=== PATIENT | female | born 1955 | race American Indian/Alaskan Native ===

== ENCOUNTER 2022-07-30 06:59 | Day surgery (SDC) | payer MEDICARE, OTHER ==
[2022-07-23 14:32] VITALS: BP 188/78
[~2022-07-30] VITALS: Ht 165.1 cm; Wt 125.9 kg
[~2022-07-30 06:59] MED LIST: AZELASTIN-FLUTI23 GM NS; B COMPLEX1 EACH PO; BETAMETHASONE D15 G2 TOP; CLARITIN10 M2 PO; COZAAR50 MG PO; HYDROCHLOROTH12.5 M1 PO; IPRAT-ALBUT 0.5-3 ML INH; K-TAB ER20 MEQ PO; LEFLUNOMIDE20 MG PO; MELOXICAM15 MG PO; MOVE FREE ULTR1 EAC2 PO; OMEPRAZOLE20 MG PO; PLAQUENIL200 MG PO; SIMVASTATIN10 MG PO; SINGULAIR10 MG PO; TRIAMCINOL40 MG/1 M4 IJ; TYLENOL EXTRA500 MG PO; VENTOLIN HFA18 GM INH; WIXELA 250-501 EACH; [UNRECOGNIZED DRUG - OTHER] PO
[2022-07-30 07:24] VITALS: BP 177/56
--- NOTE | 2022-07-30 08:57 | NUR ---
07/30/22 0857 Viktoria Patel 4884-PATIENT ARRIVED TO PACU ON 6L MASK RR EVEN DROWSY OPENING EYES REPORTS " CRAMPY" WHEN RN ASKED IF TOLERABLE REPORTS "YES" DOZES BACK TO SLEEP. SR. IVF INFUSING. NO DRAINAGE TO NICCI AREA.
[2022-07-30] MEDS ORDERED: TYLENOL EXTRA500 MG PO (09:11)
[2022-07-30] MEDS ORDERED: MOTRIN IB200 M1 PO (09:11)
[2022-07-30] MEDS ORDERED: OXYCODONE HCL5 MG PO (09:12)
[2022-07-30 09:33] VITALS: BP 162/73
--- NOTE | 2022-07-31 16:58 | OR ---
[facility] [address], [place] [address] Signed DATE OF OPERATION: 07/30/2022 SURGEON: Tamar Means MD PREOPERATIVE DIAGNOSES: Endometrial fluid, pelvic pain. POSTOPERATIVE DIAGNOSES: Endometrial fluid, pelvic pain, endometrial polyps. PROCEDURE: Hysteroscopy, resection of polyps. ANESTHESIA: MAC. ESTIMATED BLOOD LOSS: Minimal. DRAINS: None. INDICATIONS AND FINDINGS: The patient is a 67-year-old female, who has a history of approximately six months of some pelvic discomfort which is intermittent. Ultrasound was done, which showed normal ovaries, but with fluid within the endometrial canal. She denied any bleeding. At the time of surgery, exam under anesthesia was normal with a normal-size uterus. There were no palpable adnexal masses, exam is limited by her morbid obesity. At the time of hysteroscopy, the majority of the cavity was atrophic, but there were some polyps on the left fundus as well as the lower left fundus. DESCRIPTION OF PROCEDURE: The patient was prepped and draped in the dorsal lithotomy position. The [place]ck speculum was placed into the cul-de-sac. The anterior lip of the cervix was visualized and grasped with a single-tooth tenaculum. The cavity was then sounded to 10 cm. It was dilated easily to a #8 dilator and the MyoSure device was placed. The polyps were identified and the MyoSure Lite was introduced. The polyps were removed without any difficulty. The cavity appeared clean and atrophic following this. The procedure was then terminated. The instruments were removed from the vagina. The cervix was visualized and there was no evidence of any ongoing bleeding. The patient was taken to Electronically Signed By: TAMAR MEANS MD 07/31/22 1658 PATIENT NAME: KACEY DAVIS OPERATIVE REPORT DATE OF : 59 REPORT #: [id number] PHYSICIAN: TAMAR MEASN MD PCP: ANTHONY PAULINO DO REPORT IS CONFIDENTIAL AND NOT TO BE RELEASED WITHOUT AUTHORIZATION [facility] [address] [place] [id number] Signed the recovery room in good condition. All sponge and needle counts were correct. Tamar Means MD PJW/MODL /[id number] cc: Anthony Paulino DO Copies: ANTHONY PAULINO DO ~ Electronically Signed By: TAMAR MEANS MD 07/31/22 1658 PATIENT NAME: KACEY DAVIS OPERATIVE REPORT DATE OF : 59 REPORT #: [id number] PHYSICIAN: TAMAR MEANS MD PCP: ANTHONY PAULINO DO REPORT IS CONFIDENTIAL AND NOT TO BE RELEASED WITHOUT AUTHORIZATION
--- NOTE | 2022-08-01 15:01 | PATH ---
[facility] [place] [facility] [address] [place], [place] [address] Signed SPECIMEN(S): A ENDOMETRIAL POLYP SPECIMEN SOURCE: A. ENDOMETRIAL POLYP CLINICAL HISTORY: Fluid in endometrial cavity; pelvic pain FINAL PATHOLOGIC DIAGNOSIS: Endometrial polyp: - Polypoid endometrial mucosa negative for hyperplasia or atypia. JVR:lashonda:C2NR MICROSCOPIC EXAMINATION: Histologic sections of all submitted blocks are examined by light microscopy. These findings, together with the gross examination, support the pathologic diagnosis. GROSS DESCRIPTION: The specimen, labeled and designated "Francesco, A" and designated on the requisition "endometrial polyps," is received in formalin and consists of multiple fragments of pink-bonilla soft tissue (2.5 x 1.5 x 0.5 cm in aggregate). The specimen is submitted entirely in cassette A1. AC (under the direct supervision of a pathologist) The Gross Description was prepared using a voice recognition system. The report was reviewed for accuracy; however, sound-alike word errors, addition and/or deletions may occur. If there is any question about this report, please contact Client Services. PERFORMING LABORATORY: The technical component was performed by [facility], [address] [place] [id number] (CLIA# [id number]). Professional interpretation was performed by [facility] - [facility], [address] [place] [id number] (CLIA#: [id number]). Diagnostician: Gio Osborne MD Pathologist Electronically Signed 08/01/2022 Copies: PATIENT NAME: KACEY DAVIS PATHOLOGY DATE OF : 59 REPORT #: [id number] PHYSICIAN: LATOSHA SIFUENTES PCP: ANTHONY PAULINO DO REPORT IS CONFIDENTIAL AND NOT TO BE RELEASED WITHOUT AUTHORIZATION [address] [address] Signed ~ PATIENT NAME: KACEY DAVIS PATHOLOGY DATE OF : 59 REPORT #: [id number] PHYSICIAN: LATOSHA SIFUENTES PCP: ANTHONY PAULINO DO REPORT IS CONFIDENTIAL AND NOT TO BE RELEASED WITHOUT AUTHORIZATION
== END 2022-07-30 09:40 | disposition home or self-care (01) ==
LOC: DS 06:59
PROVIDERS: ATTEND Obstetrics & Gynecology
PROC: 0UDB8ZZ Extraction of Endometrium, Via Natural or Artificial Opening Endoscopic (ICD-10-PCS; principal; 2022-07-30 09:15)
DX: N84.0 Polyp of corpus uteri (principal); E78.5 Hyperlipidemia, unspecified; I10 Essential (primary) hypertension; M06.9 Rheumatoid arthritis, unspecified; Z96.652 Presence of left artificial knee joint
CPT/HCPCS: 00952; J0131; J0690; J1100; J1644; J1885; J2405; J2704; J3490; J7121

== ENCOUNTER 2024-01-09 18:19 | Emergency (ER) | payer OTHER, MEDICARE ==
[~2024-01-09] VITALS: Ht 165.1 cm; Wt 127.8 kg
--- OUTSIDE RECORDS SUMMARY | ~2024-01-09 | XMS | Continuity of Care Document ---
Demographics + + + | Address | [address] | | | [place] [address] | + + + | Preferred Language | Unknown | + + + | Marital Status | | + + + | Buddhism Affiliation | Unknown | + + + | Race | or | + + + | Ethnic Group | Not or | + + + Author + + + | Author | [facility] | + + + | Organization | [facility] | + + + | Address | [address] | | | [place] [address] | + + + | Phone | | + + + Care Team Providers + + + + | Care Music Engineer Name | Role | Phone | + + + + Unavailable | Unavailable | + + + + Unavailable | Unavailable | + + + + Allergies No information. Encounters No information. Functional Status No information. Immunizations No information. Medications + + + + | date | description | facility | + + + + | 2023-11-19 00:00 | cefdinir 300 MG Oral | [facility] | | | Capsule | | + + + + | 2023-11-19 00:00 | Cefdinir 300 MG Oral | [facility] | | | Capsule | | + + + + Problems No information. Procedures + + + + | date | description | facility | + + + + | 2023-11-19 00:00 | Urinalysis; Dipstick | [facility] | + + + + Results/Labs No information. Social History +--------+ + + | date | description | facility | +--------+ + + Vital Signs + + + + + | date | measurement | value | units | + + + + + | 2023-11-19 00:00 | BMI | 45.2 | 1 | + + + + + | 2023-11-19 00:00 | BP_diastolic | 88 | mmHg | + + + + + | 2023-11-19 00:00 | BP_systolic | 138 | mmHg | + + + + + | 2023-11-19 00:00 | BSA | 2.3 | 1 | + + + + + | 2023-11-19 00:00 | heart_rate | 1|1| | completed | + + + + + | 2023-11-19 00:00 | heart_rate | 69 | /min | + + + + + | 2023-11-19 00:00 | height_metric | 167.64 | cm | + + + + + | 2023-11-19 00:00 | height_standard | 66 | in | + + + + + | 2023-11-19 00:00 | o2_saturation | 99 | % | + + + + + | 2023-11-19 00:00 | temperature_metric | 36.28 | C | | | | | | + + + + + | 2023-11-19 00:00 | | 97.3 | F | | | temperature_standar | | | | | d | | | + + + + + | 2023-11-19 00:00 | weight_metric | 127.01 | kg | + + + + + | 2023-11-19 00:00 | weight_standard | 280 | lb | + + + + +"
[~2024-01-09 18:19] MED LIST changes: +MOTRIN IB200 M1 PO; +OXYCODONE HCL5 MG PO
[2024-01-09] MEDS ORDERED: ACETAMINOPHEN 500 MG TAB PO ONE (19:30)
[2024-01-09 19:54] VITALS: BP 187/90
== END 2024-01-09 19:56 | disposition home or self-care (01) ==
LOC: ED 18:19
DX: S70.02XA Contusion of left hip, initial encounter (principal); S70.12XA Contusion of left thigh, initial encounter; S50.02XA Contusion of left elbow, initial encounter; W18.39XA Other fall on same level, initial encounter; E66.01 Morbid (severe) obesity due to excess calories; Z68.42 Body mass index [BMI] 45.0-49.9, adult; Z91.040 Latex allergy status; Z79.899 Other long term (current) drug therapy
CPT/HCPCS: 73080; 73502; 99283; A9270

== ENCOUNTER 2025-02-01 11:31 | Emergency (ER) | payer OTHER, MEDICARE ==
[~2025-02-01] VITALS: Ht 165.1 cm; Wt 126.0 kg
[2025-02-01] MEDS ORDERED: ACETAMINOPHEN 500 MG TAB PO ONE ×2 (11:45→12:15)
[2025-02-01] MEDS ORDERED: DIPHTH,PERTUSS(ACELL),TET VAC 0.5 ML SYRINGE IM ONE (12:00)
[2025-02-01 13:20] VITALS: BP 137/51
== END 2025-02-01 13:22 | disposition home or self-care (01) ==
LOC: ED 11:31
DX: S39.012A Strain of muscle, fascia and tendon of lower back, initial encounter (principal); S50.01XA Contusion of right elbow, initial encounter; I10 Essential (primary) hypertension; J45.909 Unspecified asthma, uncomplicated; W01.0XXA Fall on same level from slipping, tripping and stumbling without subsequent striking against object, initial encounter; Z79.899 Other long term (current) drug therapy; Z79.51 Long term (current) use of inhaled steroids
CPT/HCPCS: 72100; 73090; 90471; 90715; 99284-25; A9270